=== PATIENT | male | born 1965 | race Caucasian/White ===

== ENCOUNTER 2016-12-02 06:21 | Inpatient (IN) | payer OTHER ==
[~2016-12-02] VITALS: Ht 195.6 cm; Wt 133.5 kg
[2016-12-02 07:18] LABS: VENOUS BASE EXCESS -4.8 (-2.0-2.0); VENOUS O2 SATURATION 91.9 % (60.0-80.0); VENOUS PARTIAL PRESSURE CO2 51.1 mmHg (38.0-50.0); VENOUS STANDARD HCO3 20.4 MEQ/L; VENOUS TOTAL CO2 24.2 MEQ/L (24.0-28.0)
[2016-12-02 07:21] LABS: BASO % 0.3 % (0.0-1.0); EOS # 0.1 K/mm3 (0.0-0.50); EOS % 1.2 % (0.0-3.0); LARGE UNSTAINED CELL # 0.1 K/mm3 (0.0-0.4); LARGE UNSTAINED CELL % 1.3 % (0.0-4.0); LYMPH # 1.4 K/mm3 (1.5-4.5); LYMPH % 21.7 % (24.0-44.0); MEAN CORPUSCULAR HEMOGLOBIN 30.4 pg (27.0-33.0); MEAN CORPUSCULAR HGB CONC 32.7 g/dl (32.0-36.5); MEAN CORPUSCULAR VOLUME 92.9 fl (80.0-96.0); MONO # 0.4 K/mm3 (0.0-0.8); MONO % 7.3 % (0.0-5.0); NEUTROPHILS # 4.1 K/mm3 (1.8-7.7); NEUTROPHILS % 68.3 % (36.0-66.0); PLATELET COUNT, AUTOMATED 197 k/mm3 (150-450); RED CELL DISTRIBUTION WIDTH 12.3 % (11.5-14.5); WHITE BLOOD COUNT 5.9 K/mm3 (4.0-10.0)
--- NOTE | 2016-12-02 07:29 | REP ---
Clinical: Syncope . Comparison: None . Findings: The ventricles, sulci, and cisterns are normal in position and appearance. Easley-white differentiation is maintained. No acute intracranial hemorrhage, mass/mass effect, pathology or trauma/injury. No evidence for acute infarction. No extra-axial fluid collection. Calvarium is intact. Small fluid level identified in the left maxillary sinus along with subtle opacity to the sphenoid sinuses. The mastoid air cells are clear. Impression: Mild sinus disease. No evidence for acute intracranial pathology or trauma/injury. Signed by Dillon Odonnell MD 12/02/2016 07:21 A
[2016-12-02 07:51] LABS: ANION GAP 10 MEQ/L (8-16); BLOOD UREA NITROGEN 17 MG/DL (7-18); CALCIUM LEVEL 7.9 MG/DL (8.5-10.1); CARBON DIOXIDE LEVEL 24 MEQ/L (21-32); CHLORIDE LEVEL 108 MEQ/L (98-107); CREATININE FOR GFR 1.11 MG/DL (0.70-1.30); GLOMERULAR FILTRATION RATE > 60.0 (>56); GLUCOSE, FASTING 125 MG/DL (70-105); POTASSIUM SERUM 3.4 MEQ/L (3.5-5.1); SODIUM LEVEL 142 MEQ/L (136-145)
[2016-12-02] MEDS ORDERED: LIDOCAINE 2% W/EPIN INJ 20ML **PRES FREE As Ordered ONE (08:08)
--- NOTE | 2016-12-02 08:12 | REP ---
Clinical: Syncope. Technique: Portable semiupright chest x-ray. Comparison: None. Findings: The cardiac silhouette is upper limits of normal. Calcified hilar lymph nodes are suggested which may reflect prior granulomatous disease. Superimposed atelectasis cannot be excluded. No effusion. No pneumothorax. Skeletal structures intact. Impression: Limited by portable technique. Findings to suggest prior granulomatous disease. Cannot exclude superimposed process including perihilar and right basilar atelectasis. Signed by Dillon Odonnell MD 12/02/2016 08:04 A
[2016-12-02] MEDS ORDERED: AMBI10TA PO (08:13)
[2016-12-02] MEDS ORDERED: LIDOCAINE 2% W/EPIN INJ 20ML **PRES FREE INJ ONE (08:15)
[2016-12-02] MEDS ORDERED: NS 1,000 ML IV ONE ×2 (08:15)
[2016-12-02 08:45] LABS: OSMOLALITY SERUM 295 MOSM/KG (275-295)
[2016-12-02] MEDS ORDERED: METOPROLOL TART 25 MG TABLET PO STA (08:55)
[2016-12-02] MEDS ORDERED: zolPIDEM TARTRATE 5 MG TAB PO PRN (09:00)
[2016-12-02] MEDS ORDERED: ONDANSETRON 4MG/2ML VIAL (J2405) IV PRN (09:00)
[2016-12-02] MEDS ORDERED: ONDANSETRON 4MG/2ML VIAL (J2405) IV ONE (09:00)
[2016-12-02] MEDS ORDERED: POTASSIUM CHLORIDE 10 MEQ SR TABLET PO ONE (09:00)
[2016-12-02] MEDS: ENOXAPARIN 40 MG/0.4 ML SYRINGE (J1650) SC SCH (09:29)
[2016-12-02 09:31] LABS: ALBUMIN 3.4 GM/DL (3.2-5.2); ALBUMIN/GLOBULIN RATIO 1.21 (1.00-1.93); ALKALINE PHOSPHATASE 63 U/L (45-117); ALT/SGPT 40 U/L (12-78); AST/SGOT 21 U/L (15-37); BILIRUBIN,DIRECT < 0.1 MG/DL (0.0-0.2); BILIRUBIN,TOTAL 0.3 MG/DL (0.2-1.0); FREE T4 0.87 NG/DL (0.76-1.46); TOTAL PROTEIN 6.2 GM/DL (6.4-8.2)
[2016-12-02 09:34] LABS: PROLACTIN 11.9 NG/ML (2.1-17.7)
--- NOTE | 2016-12-02 10:36 | REP ---
Duplex carotid sonography: History: Syncope. Sonographic findings: Antegrade flow was observed in both vertebral arteries. Right carotid: The right common carotid artery is unremarkable. There is minimal soft plaquing in the bulb on the right side. Color flow and spectral Doppler interrogation demonstrates atypical Doppler waveforms suggestive of cardiac etiology. No increased velocities are seen. Velocity chart right carotid: CCA PSV 57 cm/s ICA PSV 44 EDV 21 ECA PSV 48 ICA/CCA ratio normal 0.8. Impression: No evidence of significant stenosis in the right carotid artery. Left carotid: Two-dimensional scanning demonstrates minimal carotid bulb soft plaquing on the left. No high-grade stenosis is seen. Color flow and spectral Doppler interrogation demonstrate normal velocities. Left carotid Doppler waveforms are atypical as well raising question of cardiac etiology. Impression: No evidence of significant stenosis in the left carotid artery. Atypical bilateral carotid artery Doppler wave forms, question cardiac etiology. Signed by Ronen Sandoval MD 12/02/2016 01:34 P
[2016-12-02] MEDS: NS 1,000 ML IV SCH ×2 (11:09→21:08)
--- NOTE | 2016-12-02 11:30 | REP ---
MRI BRAIN WITHOUT AND WITH CONTRAST: HISTORY: Syncope. CONTRAST: ProHance 26 mL. COMPARISON: CT 12/02/2016. There are no areas of abnormal signal intensity in the brain. There is no intraparenchymal hemorrhage, infarct, mass or midline shift. The sella turcica is partially empty. There is no abnormal enhancement. The ventricular system is normal in appearance. There is no extracerebral collection. Mucosal thickening is present in the sphenoid and left maxillary sinuses. IMPRESSION: There is no intracranial lesion. Signed by Gordon Mendoza MD 12/02/2016 11:32 A
[2016-12-02] MEDS: METOPROLOL TART 25 MG TABLET PO SCH ×2 (12:09→18:47)
[2016-12-02 15:48] VITALS: BP 126/79
[2016-12-02 16:18] LABS: METHADONE URINE NEGATIVE (NEGATIVE)
[2016-12-02] MEDS: ACETAMINOPHEN TAB 650MG DOSE (2X325MG) PO PRN (18:48)
[2016-12-02 20:00] VITALS: BP_SYST 116; BP_SYST 126; BP_SYST 130; BP_DIAS 63; BP_DIAS 75
[2016-12-03] VITALS (7 sets, daily range): BP systolic 100–159; BP diastolic 61–86
[2016-12-03] MEDS: METOPROLOL TART 25 MG TABLET PO SCH ×5 (00:15→23:24)
[2016-12-03] MEDS: ACETAMINOPHEN TAB 650MG DOSE (2X325MG) PO PRN ×2 (04:15→16:55)
[2016-12-03] MEDS: NS 1,000 ML IV SCH ×3 (06:08→23:25)
[2016-12-03 07:52] LABS: MEAN CORPUSCULAR HEMOGLOBIN 30.8 pg (27.0-33.0); MEAN CORPUSCULAR HGB CONC 33.6 g/dl (32.0-36.5); MEAN CORPUSCULAR VOLUME 91.8 fl (80.0-96.0); RED CELL DISTRIBUTION WIDTH 12.5 % (11.5-14.5); WHITE BLOOD COUNT 6.2 K/mm3 (4.0-10.0)
--- NOTE | 2016-12-03 08:12 | ECGEPIP ---
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
[2016-12-03 08:17] LABS: ANION GAP 5 MEQ/L (8-16); BLOOD UREA NITROGEN 11 MG/DL (7-18); CALCIUM LEVEL 8.3 MG/DL (8.5-10.1); CARBON DIOXIDE LEVEL 27 MEQ/L (21-32); CHLORIDE LEVEL 111 MEQ/L (98-107); CREATININE FOR GFR 0.98 MG/DL (0.70-1.30); GLOMERULAR FILTRATION RATE > 60.0 (>56); GLUCOSE, FASTING 95 MG/DL (70-105); POTASSIUM SERUM 4.6 MEQ/L (3.5-5.1); SODIUM LEVEL 143 MEQ/L (136-145)
[2016-12-03] MEDS: ENOXAPARIN 40 MG/0.4 ML SYRINGE (J1650) SC SCH (09:32)
--- NOTE | 2016-12-03 10:58 | IPNPDOC ---
Subjective Date Seen The patient was seen on 12/03/16. Subjective Chief Complaint/HPI The patient is a 51-year-old male admitted with a reason for visit of Syncope. Events since last encounter Feeling well, remebers me from yesterday afternoon's encounter, tolerating diet , pain controlled, no chest pain, no shortness of breath, no palpitations Constitutional: Denies: Chills, Fever ENT: Reports: Head Aches (at site of contusion/laceration resolved with tylenol ) Skin: Denies: Rash Pulmonary: Denies: Dyspnea, Cough Cardiovascular: Denies: Chest Pain, Palpitations Gastrointestinal: Denies: Nausea, Vomiting, Abdominal Pain Objective Physical Examination General Exam: Positive: Alert, Cooperative, No Acute Distress Eye Exam: Negative: Conjunctiva & lids normal, Sclera icteric Neck Exam: Positive: Supple Chest Exam: Positive: Clear to auscultation, Negative: Rales, Rhonchi, Wheezing Heart Exam: Positive: Rate Normal, Regular Rhythm, Normal S1, Normal S2 Telemetry: Positive: No significant arrhythmia Abdomen Exam: Positive: Normal bowel sounds, Soft, Negative: Tenderness Extremity Exam: Negative: Edema Assessment /Plan Problems (1) Syncope Status: Acute Problem Text: presented with syncope, found to recurrent paroxysymal atrial fibrillation with rvr Had altered mental status for hours after event Totally resolved to baseline, atrial fibrillation now sinus Previous episode possibly related to exercise and hypoglycemia Does take ambien at night (2) Metabolic encephalopathy Status: Acute (3) Atrial fibrillation with rapid ventricular response Status: Acute (4) PTSD (post-traumatic stress disorder) Status: Chronic (5) Laceration of head Status: Acute Problem Text: lac above left eye- closed in ED Plan/VTE VTE Prophylaxis Ordered?: Yes VS, I&O, 24H, [facility] Vital Signs/I&O Vital Signs Date Time Temp Pulse Resp B/P (MAP) Pulse Ox O2 Delivery O2 Flow Rate FiO2 12/03/16 08:00 98.9 61 20 134/61 (85) 96 12/03/16 04:00 Room Air I&O- Last 24 Hours up to 6 AM 12/03/16 06:00 Intake Total 3960 ml Output Total 2500 ml Balance 1460 ml Laboratory Data 24H LABS Laboratory Tests 2 12/02/16 11:31: Lactic Acid Followup at 4 Hours 2.0, Total Creatine Kinase 139, Creatine Kinase MB 2.6, Creatine Kinase MB Relative Index 1.87, Troponin I < 0.02 12/02/16 15:31: Urine Appearance CLEAR, Urine Color YELLOW, Urine pH 7.0, Urine Specific Datil 1.013, Urine Protein NEGATIVE, Urine Glucose (UA) NEGATIVE, Urine Ketones NEGATIVE, Urine Urobilinogen 0.2, Urine Bilirubin NEGATIVE, Urine Leukocyte Esterase NEGATIVE, Urine Blood NEGATIVE, Urine Nitrite NEGATIVE, Urine WBC (Auto) 0, Urine RBC (Auto) 1, Urine Hyaline Casts (Auto) 0, Urine Bacteria (Auto) 1+H, Urine Squamous Epithelial Cells 0, Urine Sperm (Auto) , Urine Amphetamines Screen NEGATIVE, Urine Benzodiazepines Screen NEGATIVE, Urine Opiates Screen NEGATIVE, Urine Methadone Screen NEGATIVE, Urine Barbiturates Screen NEGATIVE, Urine Phencyclidine Screen NEGATIVE, Urine Cocaine Metabolite Screen NEGATIVE, Urine Cannabinoids Screen NEGATIVE 12/02/16 17:55: Total Creatine Kinase 132, Creatine Kinase MB 2.1, Creatine Kinase MB Relative Index 1.59, Troponin I < 0.02 12/03/16 07:19: Anion Gap 5L, Glomerular Filtration Rate > 60.0, Blood Urea Nitrogen 11, Creatinine 0.98, Sodium Level 143, Potassium Level 4.6#, Chloride Level 111H, Carbon Dioxide Level 27, Calcium Level 8.3L, Magnesium Level 2.0 CBC/BMP Laboratory Tests 12/03/16 07:19 Red Blood Count 4.10 L, Mean Corpuscular Volume 91.8, Mean Corpuscular Hemoglobin 30.8, Mean Corpuscular Hemoglobin Concent 33.6, Red Cell Distribution Width 12.5, Calcium Level 8.3 L Microbiology Microbiology 12/02/16 Blood Culture, Received Pending FLINTNOVA MD Dec 03, 2016 10:58
--- NOTE | 2016-12-03 13:15 | ECGEPIP ---
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
--- NOTE | 2016-12-03 13:47 | HPE ---
DATE OF ADMISSION: 12/02/2016 CHIEF COMPLAINT: I passed out. 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. He had gotten up around 5:00 a.m., went to the shower and apparently syncopized in the shower and was found down in the shower by [employer] personal bleeding from above his left eye. The patient has no memory of the event and is not aware that he had any prodromal leading up to the event. He became aware of what was going on when he was in the ambulance on the way to the emergency department. In the emergency department, he was found to be in atrial fibrillation. He has previously had an episode of presyncope associated with exercise, early one morning. However, he was thought to become hypoglycemic, became presyncopal, he was helped down and was found to be in atrial fibrillation. He was briefly followed by [facility] at [address] [place] [address]. [place] for that. He was cardioverted and then released from further followup. He has been feeling fine since. PAST MEDICAL HISTORY: Atrial fibrillation. Recently diagnosed with obstructive sleep apnea with CPAP, which he does not have with him. History of atrial fibrillation not anticoagulated. Not rate controlled medically. Posttraumatic stress syndrome (PTSD). Insomnia on Ambien. 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 Osteoarthritis. PAST SURGICAL HISTORY: Left knee surgery times two. Back surgery L4-5. SOCIAL HISTORY: He does not use any significant amount of alcohol. He does not smoke. He is . FAMILY HISTORY: Notable for a father who is alive and well. Mother has a history of lung cancer. Sister with breast cancer. Medication at home are listed as: Ambien. He does take Ultram intermittently for pain. Motrin for pain. He does have the bag of medication with him, which was taken to the pharmacy for identification. ALLERGIES: He has no known drug allergies. PHYSICAL EXAMINATION: Upon my initial evaluation. Temperature was 98.9, heart rate 111, blood pressure 156/89, 99% on room air, respiratory rate 16. He is awake and answering questions appropriately but was obviously having some memory impairment. He was unable to remember the day of the week even when it was given to him several times for him to remember. Pleasant, appropriately interactive. Extraocular movements are intact. Small laceration on his left lateral upper eye lid. Sinus nontender. Neck supple. No tenderness. Full range of motion. Mucous membranes moist. Breathing is symmetrical I:E ratio is 1:3. No wheezes, rales or rhonchi. Heart is an regular rate and rhythm. Normal S1, S2. Tachycardic. Distal pulses 2+. Capillary refills of 2 seconds. Abdomen is soft, somewhat distended. Non doughy. Nontender. No lower extremity edema. Moving all four extremities. Cranial nerves II through XII grossly intact. White cell count 5.9, hemoglobin 14.5, platelets of 197. Sodium 142, potassium 2.4, chloride 108, carbon dioxide 24. BUN 17, creatinine 1.11, lactic acid was initially 4.5. Calcium 7.9. TSH 6.23, free T4 0.87. Prolactin was within normal limits. UA remarkably unremarkable. Tox screen negative. Initial blood screen VBG was 7.26, 51, 67, 22. Blood cultures are pending. Head CT remarkably unremarkable. EKG showed atrial fibrillation. My assessment is as follows: 51-year-old with syncopal episode and head trauma. Plan will be as follows: Syncope: Cause of syncope remains unclear. He has had previous presyncopal episodes. This could be related to atrial fibrillation with RVR, although the patient did not have sensation of palpitations. Could be related to medical side effect, perhaps related to Ambien. Could be related to underlying seizure disorder, although that seems somewhat less likely although he had a prolonged confused state. I believe at this point, it would be reasonably to watch him on telemetry. Obtain a 2D echocardiogram to look for structural heart disease. Pursue a neural exam with MRI of the brain with and without contrast. Add a carotid Doppler and again mainly watch him on telemetry. I would like to start him on beta blockade for atrial fibrillation. Later in the day, the patient was noted to go into sinus rhythm spontaneously. The patient also had hypokalemia, which was repleted. Deep venous thrombosis prophylaxis ordered. Troponin cycled. I did discuss the case by phone with the patient's covering primary care doctor at [facility]. Phone number there is [phone]. I was given a progress note from his provider service representative and I did update them on his inpatient status.
[2016-12-03] MEDS ORDERED: zolPIDEM TARTRATE 10MG TAB PO PRN (21:00)
[2016-12-04 04:00] VITALS: BP 138/87
[2016-12-04 05:39] LABS: MEAN CORPUSCULAR HEMOGLOBIN 30.9 pg (27.0-33.0); MEAN CORPUSCULAR HGB CONC 33.8 g/dl (32.0-36.5); MEAN CORPUSCULAR VOLUME 91.3 fl (80.0-96.0); RED CELL DISTRIBUTION WIDTH 12.3 % (11.5-14.5); WHITE BLOOD COUNT 6.4 K/mm3 (4.0-10.0)
[2016-12-04 05:44] VITALS: BP 138/78
[2016-12-04] MEDS: METOPROLOL TART 25 MG TABLET PO SCH ×4 (05:44→17:18)
[2016-12-04 05:51] LABS: ANION GAP 6 MEQ/L (8-16); BLOOD UREA NITROGEN 14 MG/DL (7-18); CALCIUM LEVEL 7.9 MG/DL (8.5-10.1); CARBON DIOXIDE LEVEL 26 MEQ/L (21-32); CHLORIDE LEVEL 110 MEQ/L (98-107); CREATININE FOR GFR 0.93 MG/DL (0.70-1.30); GLOMERULAR FILTRATION RATE > 60.0 (>56); GLUCOSE, FASTING 96 MG/DL (70-105); MAGNESIUM LEVEL 1.7 MG/DL (1.8-2.4); POTASSIUM SERUM 3.8 MEQ/L (3.5-5.1); SODIUM LEVEL 142 MEQ/L (136-145)
[2016-12-04 08:00] VITALS: BP 124/67
[2016-12-04] MEDS: ENOXAPARIN 40 MG/0.4 ML SYRINGE (J1650) SC SCH (08:34)
[2016-12-04] MEDS ORDERED: METO25TAB PO (11:56)
[2016-12-04 12:00] VITALS: BP 158/83
[2016-12-04] MEDS ORDERED: MAG SULF 1GM/100ML (MAG RUN) 1 GM in APPROPRIATE DILUENT 1 EA IV ONE (13:00)
[2016-12-04] MEDS ORDERED: MAGNESIUM OXIDE 400 MG TAB (MAG-OX) PO ONE (14:30)
[2016-12-04 16:00] VITALS: BP 158/87
--- NOTE | 2016-12-04 16:20 | EEG ---
DATE OF PROCEDURE: 12/03/2016 REFERRING PHYSICIAN: Dr. Anson Villa DIAGNOSIS: Syncope. EEG #: [id number] HISTORY: The patient is a 51-year-old man with a history of syncope and passing out. He was found to have paroxysmal atrial fibrillation with rapid ventricular response. This EEG was done to rule out epileptic potential. TECHNICAL DESCRIPTION: This digital EEG was recorded by 21 scalp, ear and two EKG electrodes and was reviewed in bipolar and referential montages following reformatting in 10-20 international electrode placement system. INTERPRETATION: The patient was noted to be in awake and drowsy states during this EEG. Resting awake background rhythm consisted of well-formed posterior dominant rhythm with anterior/posterior gradient comprising of 9 Hz alpha activity measuring 15-40 microvolts in amplitude, which was symmetric and reactive to eye opening. Attenuation of posterior dominant rhythm was seen during transition into drowsiness. Stage I and II sleep were reviewed and were symmetric bilaterally. Anteriorly low voltage and mixed frequency activity was noted. Hyperventilation elicited mild theta slowing of background rhythm. Photic stimulation at 3-30 Hz elicited symmetric photic driving especially at mid frequencies. EKG revealed possible atrial fibrillation. No focal, lateralizing or epileptiform abnormalities were seen. No clinical or electrographic seizures were recorded. CONCLUSION: This EEG in awake, drowsy states, stage I and II sleep is within normal limits.
--- NOTE | 2016-12-05 01:00 | DSES ---
DATE OF ADMISSION: 12/02/2016 DATE OF DISCHARGE: 12/04/2016 No specialists involved in his care. No complications during his stay. No procedures performed during his stay. DISCHARGE DIAGNOSES: 1. Syncope. 2. Paroxysmal atrial fibrillation. 3. Posttraumatic stress disorder (PTSD). 4. Insomnia. 5. Hearing loss in left ear. 6. Osteoarthritis. 7. Concussion. 8. Left orbital laceration. 9. Recently diagnosed obstructive sleep apnea. 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 Had a relatively prolonged recovery period after some facial trauma resulting in a laceration above his left eye, which was closed in the emergency department. He was admitted to the hospitalist service, initially noted to be in atrial fibrillation, which self resolved to sinus rhythm. Initial heart rate was in the 130s. He was treated with beta blockade, which he tolerated well, was monitored on telemetry, remained in sinus rhythm without noticeable arrhythmia for the rest of his stay. Underwent MRI of his brain with and without contrast. Underwent carotid ultrasound. A 2D echocardiogram was not obtained during his stay do to availability of anesthesia technician. Case was discussed in general with his covering primary care doctor and at the time of discharge with Dr. Glez, his centrifugal station operator. He has been asymptomatic. At this point, he would like to return to [employer]. I have discussed the case also with his master sergeant and have suggested the patient may do better at home where he can followup with his health care as needed. At the time of discharge, he is feeling well. He has no complaints of pain, chest pain, shortness of breath. Tolerating a diet, walking without difficulty. Temperature 98.4, pulse 66, respiratory rate 18, blood pressure 158/83, 97% on room air. Intake and output notable for a positive fluid balance of 1810. He is awake, appropriately interactive, pleasantly conversant, some bruising of his left face along with an abrasion and some minimal bruising on his left flank as well. That area is nontender. Heart is in a regular rate and rhythm. Abdomen soft, doughy, nontender. White cell count 6.4, hemoglobin 12.8, BUN 14, creatinine 0.93, magnesium 1.7. DISCHARGE INSTRUCTIONS: Include the following: Followup with Dr. Garcia 12/09 at 10 a.m., Dr. Glez 01/12 at 1300. Other activity as tolerated. No strenuous activity more than lifting 5 pounds. Diet as tolerated. - metoprolol tartrate 25 mg by mouth twice daily - Ambien 10 mg by mouth daily at bedtime
--- NOTE | 2016-12-05 10:40 | ECGEPIP ---
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
--- NOTE | 2016-12-05 15:09 | ECHO ---
DATE OF PROCEDURE: 12/04/2016 REFERRING PHYSICIAN: Anson Villa MD INDICATION: Syncope. HEIGHT: 196 cm WEIGHT: 132 kg 2D MEASUREMENTS: Aortic root: 3.3 cm Left atrium: 4.3 cm Ventricular septum: 1.02 cm Posterior wall: 1.02 cm Left ventricle diastole: 4.9 cm LVOT: 2.3 cm Inferior vena cava: 2.2 cm DOPPLER MEASUREMENTS: Aortic valve velocity: 102 cm/s LVOT velocity: 85.0 cm/s LVOT VTI: 17.4 cm/s Very mild mitral regurgitation. Mitral E velocity: 70.1 cm/s Mitral A velocity: 49.4 cm/s Mitral deceleration time: 173 ms Very mild tricuspid regurgitation. Estimated right ventricle systolic pressure 27 mmHg assuming a right atrial pressure of 5 mmHg. MITRAL ANNULAR TISSUE DOPPLER: E prime septal: 6.9 cm/s E prime lateral: 12.1 cm/s DESCRIPTION: Rhythm was sinus with interpolated premature ventricular contractions (PVCs). Image quality was good. No pericardial effusion. CONCLUSIONS: 1. Normal left ventricle internal dimensions and wall thickness. Normal left ventricle (LV) wall motion and wall thickening. Normal LV systolic function. Left ventricular ejection fraction (LVEF) 65% by visual estimate. Normal LV diastolic function. 2. Mild left atrial dilatation. 3. Otherwise normal echocardiogram Doppler.
== END 2016-12-04 19:00 | disposition home or self-care (01) | DRG 312 ==
LOC: EDBD 06:21 → M ED 07:51 → M ED INP 09:03 → M PCU 12-03 18:22
PROVIDERS: ADMIT Internal Medicine; ATTEND Internal Medicine
DX: R55 Syncope and collapse (principal); I48.0 Paroxysmal atrial fibrillation; S01.112A Laceration without foreign body of left eyelid and periocular area, initial encounter; H91.92 Unspecified hearing loss, left ear; F43.10 Post-traumatic stress disorder, unspecified; G47.00 Insomnia, unspecified; M19.90 Unspecified osteoarthritis, unspecified site; G47.33 Obstructive sleep apnea (adult) (pediatric); W18.2XXA Fall in (into) shower or empty bathtub, initial encounter; Y92.133 Barracks on military base as the place of occurrence of the external cause; Y93.E1 Activity, personal bathing and showering; Y99.9 Unspecified external cause status; Z99.89 Dependence on other enabling machines and devices; Z80.3 Family history of malignant neoplasm of breast; Z80.1 Family history of malignant neoplasm of trachea, bronchus and lung